=== PATIENT | female | born 1960 | race Caucasian/White ===

== ENCOUNTER 2018-03-31 17:59 | Inpatient (IN) | payer OTHER ==
[2018-03-31] MEDS: METHYLPREDNISOLONE 125 MG INJ IV (19:32)
[2018-03-31] MEDS: SOD CHLORIDE 0.9% 1,000 ML IV (19:32)
[2018-03-31] MEDS: ALBUTEROL 0.5% (NEB) 2.5 MG/0.5 ML AMP INH (19:49)
[2018-03-31] MEDS: IPRATROPIUM (NEB) 0.5 MG/2.5 ML AMP INH (19:49)
[2018-03-31 19:59] LABS: ADD MAN DIFF? NO
[2018-03-31 20:04] LABS: BASOPHILS % 0.3 % (0.0-2.0); EOSINOPHILS # 0.1 10^3/ul (0.0-0.5); HEMATOCRIT 40.1 % (37.0-47.0); HEMOGLOBIN 12.6 g/dl (12.0-16.0); LYMPHOCYTES # 2.8 10^3/ul (0.8-2.9); LYMPHOCYTES % 26.6 % (15.0-51.0); MEAN CORPUSCULAR HEMOGLOBIN 28.2 pg (29.0-33.0); MEAN CORPUSCULAR HGB CONC 31.4 g/dl (32.0-37.0); MEAN CORPUSCULAR VOLUME 89.7 fl (82.0-101.0); MEAN PLATELET VOLUME 9.8 fl (7.4-10.4); MONOCYTE # 0.6 10^3/ul (0.3-0.9); MONOCYTES % 5.6 % (0.0-11.0); PLATELET COUNT 310 10^3/UL (140-415); RED BLOOD COUNT 4.47 10^6/ul (4.20-5.40); RED CELL DISTRIBUTION WIDTH 13.2 % (11.5-14.5)
[2018-03-31 20:04] LABS: WHITE BLOOD COUNT 10.6 10^3/ul (4.8-10.8)
[2018-03-31 20:21] LABS: ALANINE AMINOTRANSFERASE 26 IU/L (13-69); ALBUMIN 4.1 g/dl (3.3-4.9); ALBUMIN/GLOBULIN RATIO 1.07; ALKALINE PHOSPHATASE 118 IU/L (42-121); ANION GAP 13 (8-16); ASPARTATE AMINO TRANSFERASE 37 IU/L (15-46); BILIRUBIN,INDIRECT 0.1 mg/dl (0-1.1); BILIRUBIN,TOTAL 0.1 mg/dl (0.2-1.3); BLOOD UREA NITROGEN 16 mg/dl (7-20); CALCIUM 9.4 mg/dl (8.4-10.2); CARBON DIOXIDE 31 mmol/L (21-31); CHLORIDE 106 mmol/L (97-110); CREATININE 0.73 mg/dl (0.44-1.00); GLUCOSE 88 mg/dl (70-220); POTASSIUM 3.9 mmol/L (3.5-5.1); SODIUM 146 mmol/L (135-144); TOTAL PROTEIN 7.9 g/dl (6.1-8.1)
[2018-03-31 21:05] LABS: URINE PH (Dip) POC 6.5 (5.0-8.5)
[2018-03-31 21:05] LABS: URINE BLOOD (Dip) POC Negative (NEGATIVE); URINE GLUCOSE (Dip) POC Negative (NEGATIVE); URINE KETONES (Dip) POC Negative (NEGATIVE); URINE LEUKOCYTE EST (Dip) POC 1+ (NEGATIVE); URINE NITRITE (Dip) POC Negative (NEGATIVE); URINE TOTAL PROTEIN POC Negative (NEGATIVE)
[2018-03-31] MEDS: IBUPROFEN 800 MG TAB PO (21:51)
[2018-03-31] MEDS: CEFTRIAXONE 1 GM/50 ML (PMX) 50 ML IVPB (21:51)
[2018-03-31] MEDS ORDERED: ONDANSETRON 4 MG INJ IV ×2 (22:00→22:30)
[2018-03-31] MEDS ORDERED: ACETAMINOPHEN 325 MG TAB PO ×2 (22:00→22:30)
[2018-03-31] MEDS: AZITHROMYCIN 500MG/NS (PMX) 250 ML IVPB (22:13)
[2018-03-31] MEDS ORDERED: traMADol 50 MG TAB PO (22:30)
[2018-03-31] MEDS ORDERED: NACL 0.9% 3 ML SYG IV (22:30)
[2018-03-31] MEDS ORDERED: ALBUTEROL/IPRATROPIUM (NEB) 3 ML AMP HHN (22:30)
[2018-03-31] MEDS ORDERED: morphine 2 MG INJ IV (22:30)
[2018-03-31] MEDS: HEPARIN 5,000 UNIT/0.5 ML VIAL SC (23:21)
[2018-04-01] MEDS: GUAIFENESIN/DM 5ML CUP PO ×2 (01:32→05:49)
[2018-04-01] MEDS: ALBUTEROL HFA 8 GM INHALER INH ×6 (01:32→20:32)
[2018-04-01] MEDS: LEVOFLOXACIN 500MG/D5W (PMX) 100 ML IVPB (05:49)
[2018-04-01 07:12] LABS: ADD MAN DIFF? NO
[2018-04-01 07:14] LABS: HEMATOCRIT 35.1 % (37.0-47.0); HEMOGLOBIN 10.9 g/dl (12.0-16.0); LYMPHOCYTES # 0.9 10^3/ul (0.8-2.9); LYMPHOCYTES % 13.1 % (15.0-51.0); MEAN CORPUSCULAR HEMOGLOBIN 27.8 pg (29.0-33.0); MEAN CORPUSCULAR HGB CONC 31.1 g/dl (32.0-37.0); MEAN CORPUSCULAR VOLUME 89.5 fl (82.0-101.0); MEAN PLATELET VOLUME 9.8 fl (7.4-10.4); MONOCYTES % 0.6 % (0.0-11.0); NEUTROPHIL # 5.7 10^3/ul (1.6-7.5); NEUTROPHILS % 86.1 % (39.0-77.0); PLATELET COUNT 267 10^3/UL (140-415); RED BLOOD COUNT 3.92 10^6/ul (4.20-5.40); RED CELL DISTRIBUTION WIDTH 13.4 % (11.5-14.5)
[2018-04-01 07:14] LABS: WHITE BLOOD COUNT 6.6 10^3/ul (4.8-10.8)
[2018-04-01 07:55] LABS: ALANINE AMINOTRANSFERASE 13 IU/L (13-69); ALBUMIN 3.4 g/dl (3.3-4.9); ALBUMIN/GLOBULIN RATIO 1.03; ALKALINE PHOSPHATASE 87 IU/L (42-121); ANION GAP 12 (8-16); ASPARTATE AMINO TRANSFERASE 20 IU/L (15-46); BILIRUBIN,INDIRECT 0.1 mg/dl (0-1.1); BILIRUBIN,TOTAL 0.1 mg/dl (0.2-1.3); BLOOD UREA NITROGEN 16 mg/dl (7-20); CALCIUM 9.2 mg/dl (8.4-10.2); CARBON DIOXIDE 26 mmol/L (21-31); CHLORIDE 110 mmol/L (97-110); CREATININE 0.59 mg/dl (0.44-1.00); GLUCOSE 154 mg/dl (70-220); MAGNESIUM 1.9 mg/dl (1.7-2.5); PHOSPHORUS 3.5 mg/dl (2.5-4.9); POTASSIUM 4.1 mmol/L (3.5-5.1); SODIUM 144 mmol/L (135-144); TOTAL PROTEIN 6.7 g/dl (6.1-8.1)
[2018-04-01] MEDS: HEPARIN 5,000 UNIT/0.5 ML VIAL SC ×2 (08:58→20:35)
[2018-04-01] MEDS ORDERED: morphine LIQ (10 MG/5 ML) CUP PO (15:30)
[2018-04-02] MEDS: ALBUTEROL HFA 8 GM INHALER INH ×6 (01:38→20:40)
[2018-04-02] MEDS: LEVOFLOXACIN 500 MG TAB PO (05:33)
[2018-04-02] MEDS: GUAIFENESIN/DM 5ML CUP PO ×2 (09:34→20:40)
[2018-04-02] MEDS: MOMETASONE 0.24 GM INHALER INH ×2 (09:36→20:40)
[2018-04-02] MEDS: HEPARIN 5,000 UNIT/0.5 ML VIAL SC ×2 (09:36→20:38)
[2018-04-03] MEDS: ALBUTEROL HFA 8 GM INHALER INH ×4 (01:00→12:24)
[2018-04-03] MEDS: LEVOFLOXACIN 500 MG TAB PO (05:44)
[2018-04-03] MEDS: MOMETASONE 0.24 GM INHALER INH (09:16)
[2018-04-03] MEDS: HEPARIN 5,000 UNIT/0.5 ML VIAL SC (09:16)
== END 2018-04-03 13:32 | disposition home or self-care (01) | DRG 190 ==
LOC: FTE 17:59 → PP2 21:46
DX: J44.0 Chronic obstructive pulmonary disease with (acute) lower respiratory infection (principal); J18.9 Pneumonia, unspecified organism; E87.0 Hyperosmolality and hypernatremia; J44.1 Chronic obstructive pulmonary disease with (acute) exacerbation; E86.0 Dehydration
CPT/HCPCS: 71046; 80053; 81003; 83735; 84100; 85025; 87040; 94644; 96374; 96375; 99285-25

== ENCOUNTER 2018-04-07 15:36 | Outpatient (CLI) | payer OTHER | END 2018-04-07 16:10 | disposition home or self-care (01) | LOC: DCC 15:36 | DX: J44.9 Chronic obstructive pulmonary disease, unspecified (principal); J18.9 Pneumonia, unspecified organism; R91.1 Solitary pulmonary nodule; E78.5 Hyperlipidemia, unspecified | CPT/HCPCS: G0463 ==

== ENCOUNTER 2018-04-22 15:04 | Outpatient (CLI) | payer OTHER | END 2018-04-22 15:55 | disposition home or self-care (01) | LOC: DCC 15:04 | DX: J44.9 Chronic obstructive pulmonary disease, unspecified (principal); J18.9 Pneumonia, unspecified organism | CPT/HCPCS: G0463 ==